=== PATIENT | male | born 1945 | race Caucasian/White ===

== ENCOUNTER → 2024-07-03 | Outpatient (CLI) | payer MEDICARE | END | disposition home or self-care (01) | LOC: RADPV 10:36 | PROVIDERS: ATTEND Internal Medicine Interventional Cardiology | DX: I82.403 Acute embolism and thrombosis of unspecified deep veins of lower extremity, bilateral (principal); R59.0 Localized enlarged lymph nodes; Z86.718 Personal history of other venous thrombosis and embolism | CPT/HCPCS: 93970 ==